=== PATIENT | male | born 1955 | race American Indian/Alaskan Native ===

== ENCOUNTER 2017-02-02 23:42 | Emergency (ER) | payer OTHER ==
[2017-02-03] MEDS ORDERED: TORADOL ONE (05:16)
[2017-02-03] MEDS ORDERED: NORCO 10/325 ONE (05:16)
[2017-02-03] MEDS ORDERED: TORADOL IM ONE (05:23)
[2017-02-03] MEDS ORDERED: NORCO 10/325 PO ONE (05:23)
--- NOTE | 2017-02-03 05:29 | XRay Report ---
FINAL REPORT PROCEDURE: XR KNEE 1-2V RT TECHNIQUE: Right knee radiographs, AP and lateral views. HISTORY: pain and swelling of right knee COMPARISON: No prior studies are available for comparison. FINDINGS: Fracture (s) and/or Dislocation(s): None . Joint space(s): Normal. Soft tissues: Normal. Bone mineralization: Normal. Foreign bodies: None. IMPRESSION: Normal Examination.
--- NOTE | 2017-02-03 06:23 | Emergency Department Report ---
HPI - General Chief Complaint: Extremity Injury, Lower Time Seen by Provider: 02/03/17 05:43 - HPI HPI: 51-year-old male complains of right knee pain and swelling since 1200 hrs. yesterday. Denies history of similar symptoms. Denies injury or trauma. Describes his pain as 10 out of 10 constant, tight, throbbing pain. Denies numbness, weakness, paresthesias. Tried naproxen without relief. Denies fever , chills, nausea, vomiting, chest pain, shortness of breath, abdominal pain. Positive for history of gout. ED Past Medical Hx - Past Medical History Previous Medical History?: Yes Hx Hypertension: Yes Hx Heart Attack/AMI: Yes (2012) Hx Congestive Heart Failure: No Hx Diabetes: No Hx Deep Vein Thrombosis: No Hx Pulmonary Embolism: No Hx Liver Disease: No Hx Renal Disease: No Hx Sickle Cell Disease: No Hx Arthritis: No Hx Seizures: No Hx Kidney Stones: Yes Hx Asthma: Yes Hx COPD: No Hx Tuberculosis: No Hx Dementia: No Hx HIV: No Additional medical history: high cholesterol, - Surgical History Past Surgical History?: Yes Hx Coronary Stent: Yes (X 8) Hx Open Heart Surgery: No Hx Pacemaker: No Hx Internal Defibrillator: No Hx Cholecystectomy: No Hx Appendectomy: No Hx Breast Surgery: No Additional Surgical History: ureter sx - Social History Smoking Status: Never Smoker Substance Use Type: None - Medications Home Medications: Home Medications Medication Instructions Recorded Confirmed Last Taken Type Ezetimibe [Zetia] 10 mg PO QDAY #30 tablet 12/08/13 11/22/14 Unknown Rx Hydrochlorothiazide [HCTZ] 25 mg PO QDAY #30 capsule 12/08/13 11/22/14 Unknown Rx Montelukast [Singulair] 10 mg PO QPM #30 tablet 12/08/13 11/22/14 Unknown Rx Prasugrel [Effient] 10 mg PO DAILY #30 tablet 12/08/13 11/22/14 Unknown Rx Valsartan [Diovan] 160 mg PO QDAY #30 tablet 12/08/13 11/22/14 Unknown Rx Isosorbide Mononitrate [Isosorbide 30 mg PO QAM 11/22/14 11/22/14 Unknown History Mononitrate ER (IMDUR)] Metoprolol [Lopressor] 25 mg PO BID 11/22/14 11/22/14 Unknown History Omeprazole [PriLOSEC] 20 mg PO QDAY 11/22/14 11/22/14 Unknown History Aspirin [Aspirin BABY CHEW TAB] 81 mg PO QDAY #30 tab.chew 11/26/14 Unknown Rx Atorvastatin Calcium [Lipitor] 10 mg PO QHS #30 tablet 11/26/14 Unknown Rx Lisinopril [Zestril TAB] 40 mg PO QDAY #30 tablet 11/26/14 Unknown Rx Metoprolol Xl [Metoprolol 25 mg PO QDAY #30 tablet 11/26/14 Unknown Rx SUCCINATE ER TAB] Acetaminophen/Codeine [Tylenol 1 tab PO Q6H PRN #15 tab 02/03/17 Unknown Rx /Codeine # 3 tab] Indomethacin [Indocin] 25 mg PO TID #40 capsule 02/03/17 Unknown Rx ED Review of Systems ROS: Stated complaint: RT KNEE PAIN Other details as noted in HPI Constitutional: denies: chills, fever, malaise Eyes: denies: eye pain ENT: denies: ear pain, throat pain, congestion Respiratory: denies: cough, shortness of breath, wheezing Cardiovascular: denies: chest pain, palpitations Endocrine: no symptoms reported Gastrointestinal: denies: abdominal pain, nausea, vomiting Musculoskeletal: joint swelling, arthralgia Neurological: denies: headache, weakness, numbness, paresthesias Physical Exam - Physical Exam Vital Signs: Vital Signs 02/03/17 00:40 Temperature 98.4 F Pulse Rate 91 H Respiratory 18 Rate Blood Pressure 147/100 O2 Sat by Pulse 100 Oximetry Physical Exam: GENERAL: The patient is well-developed and well-nourished. Patient is in NAD. HEAD: Normocephalic. Atraumatic. CHEST/LUNGS: Clear to auscultation throughout. HEART/CARDIOVASCULAR: Regular rate and rhythm. No murmurs, rubs or gallops. ABDOMEN: Abdomen is soft, nontender. Bowel sounds normoactive. No guarding or rebound tenderness. RIGHT KNEE: Limited range of motion due to pain. Tenderness to palpation over medial and lateral aspect of the right knee. Warm to touch. Positive for mild erythema and edema. Normal sensation. Peripheral pulses intact. Capillary refill less than 2 seconds. NEURO: Alert and oriented x 3. ED Course Vital Signs 02/03/17 00:40 Temperature 98.4 F Pulse Rate 91 H Respiratory 18 Rate Blood Pressure 147/100 O2 Sat by Pulse 100 Oximetry ED Medical Decision Making - Lab Data Vital Signs 02/03/17 00:40 Temperature 98.4 F Pulse Rate 91 H Respiratory 18 Rate Blood Pressure 147/100 O2 Sat by Pulse 100 Oximetry - Radiology Data Radiology results: report reviewed Right knee x-ray: No fracture or dislocation. Normal joint space, soft tissue, bony mineralization. No foreign bodies. - Medical Decision Making 61-year-old male presents today with right knee pain and swelling times one day. Positive for history of gout. His x-ray results reveal no fracture or dislocation. Patient is in no acute distress at this time. He will be discharged home and is encouraged to follow up with a primary care provider. He will be sent home on indomethacin and is encouraged to return to the emergency room for any worsening symptoms. Critical care attestation.: If time is entered above; I have spent that time in minutes in the direct care of this critically ill patient, excluding procedure time. ED Disposition Clinical Impression: Gout attack Qualifiers: Gout site: knee Gout etiology: unspecified cause Laterality: right Qualified Code(s): M10.9 - Gout, unspecified Knee pain Qualifiers: Laterality: right Chronicity: acute Qualified Code(s): M25.561 - Pain in right knee Disposition: DISCHARGED TO HOME OR SELFCARE Is pt being admited?: No Does the pt Need Aspirin: No Condition: Stable Instructions: Acute Gouty Arthritis (ED) Additional Instructions: Follow-up with primary care provider. Return to the emergency department if symptoms worsen. Prescriptions: Acetaminophen/Codeine [Tylenol /Codeine # 3 tab] 1 tab PO Q6H PRN #15 tab PRN Reason: Pain Indomethacin [Indocin] 25 mg PO TID #40 capsule Referrals: PRIMARY CAREMD [Primary Care Provider] - 3-5 Days RAMÍREZ SNELL MD [Staff Physician] - 3-5 Days Forms: Work/School Release Form(ED) Time of Disposition: 06:27
[2017-02-03 06:49] VITALS: BP 128/82
== END 2017-02-03 06:48 | disposition home or self-care (01) ==
LOC: ED 23:42
DX: M10.9 Gout, unspecified (principal); M25.561 Pain in right knee; I10 Essential (primary) hypertension; I25.2 Old myocardial infarction; J45.909 Unspecified asthma, uncomplicated
CPT/HCPCS: 73560; 82962; 96372; 99283; J1885

== ENCOUNTER 2022-03-05 17:04 | Inpatient (IN) | payer MEDICARE, OTHER ==
--- NOTE | 2022-03-05 17:44 | XRay Report ---
CHEST 2 VIEWS INDICATION / CLINICAL INFORMATION: Chest pain. Midsternal chest pain starting last night. Shortness o f breath when walking. COMPARISON: 11/08/19. FINDINGS: SUPPORT DEVICES: None. HEART / MEDIASTINUM: The heart size and pulmonary vasculature are normal. There is mild calcification in the aortic arch without aneurysm. LUNGS / PLEURA: There is minimal linear subsegmental atelectasis/scarring in the left lower lung, unc hanged. The right lung is clear. No pneumothorax. ADDITIONAL FINDINGS: There is mild chronic elevation of the left hemidiaphragm. IMPRESSION: No acute abnormality or significant change. Signer Name: Zach Turk MD Signed: 03/05/2022 5:40 PM Workstation Name: [id number]
[2022-03-05 18:08] LABS: Basophils % (Auto) 0.3 % (0.0-1.8); Eosinophils # (Auto) 0.1 K/mm3 (0.0-0.4); Hematocrit 46.9 % (35.5-45.6); Hemoglobin 14.8 gm/dl (11.8-15.2); Lymphocytes # (Auto) 1.8 K/mm3 (1.2-5.4); Lymphocytes % (Auto) 26.9 % (13.4-35.0); Mean Corpuscular HGB Conc 32 % (32-34); Mean Corpuscular Volume 87 fl (84-94); Monocytes # (Auto) 0.5 K/mm3 (0.0-0.8); Monocytes % (Auto) 7.2 % (0.0-7.3); Platelet Count 283 K/mm3 (140-440); Red Blood Count 5.37 M/mm3 (3.65-5.03); Red Cell Distribution Width 14.9 % (13.2-15.2)
[2022-03-05 18:17] LABS: Alanine Aminotransferase 13 units/L (7-56); Albumin 4.3 g/dL (3.9-5); BUN/Creatinine Ratio 9; Blood Urea Nitrogen 12 mg/dL (9-20); Calcium 9.7 mg/dL (8.4-10.2); Hemolysis Index 9
[2022-03-05 18:27] LABS: INR 0.91 (0.87-1.13)
[2022-03-05 18:28] LABS: Partial Thromboplastin Time 31.1 Sec. (24.2-36.6)
[2022-03-06] MEDS ORDERED: NITROGLYCERIN 2% OINT 1 GM TP ONE (00:09)
[2022-03-06] MEDS ORDERED: SODIUM CHLORIDE 0.9% 500 ML 500 ML IV ONE (00:09)
[2022-03-06 01:28] LABS: INR 0.96 (0.87-1.13)
[2022-03-06] MEDS: MORPHINE 4 MG/1 ML INJ IV PRN ×5 (02:10→23:55)
[2022-03-06] MEDS ORDERED: ONDANSETRON 4 MG/2 ML INJ IV ONE (02:16)
[2022-03-06] MEDS ORDERED: MORPHINE 4 MG/1 ML INJ IV ONE (02:16)
--- NOTE | 2022-03-06 03:35 | Ultrasound Report ---
"ULTRASOUND ABDOMEN, LIMITED (RIGHT UPPER QUADRANT) INDICATION: Unspecified abdominal pain. COMPARISON: None available. FINDINGS: Pancreas: Visualized portion shows no significant abnormality. Liver: Normal in size with generalized increased echotexture. No mass is identified. Normal portal ve nous flow. Gallbladder: Contracted without visualization of stones or evidence of acute cholecystitis. Sonograp hic Clark's sign: Not performed. Bile ducts: No significant abnormality. Common Bile Duct measures 2.9 mm. Free fluid: None. Additional Findings: None. IMPRESSION: 1. Increased hepatic echotexture, most commonly representing steatosis. 2. No other significant abnormality to explain the patient's abdominal pain. Signer Name: Santana Dotson MD Signed: 03/06/2022 3:30 AM Workstation Name: [id number]"
--- NOTE | 2022-03-06 05:11 | Cat Scan Report ---
CT ABDOMEN AND PELVIS WITH CONTRAST INDICATION / CLINICAL INFORMATION: Unspecified abdominal pain. TECHNIQUE: Axial CT images were obtained through the abdomen and pelvis after 100 cc Omnipaque [address] scans at this location are performed using CT dose reduction for ALARA by means of automated exposure control. COMPARISON: None available. FINDINGS: LOWER CHEST: No acute findings. There is extensive coronary atherosclerosis and/or previously placed coronary stents. LIVER: No significant abnormality. GALLBLADDER: No significant abnormality. BILE DUCTS: No significant abnormality. PANCREAS: No significant abnormality. SPLEEN: No significant abnormality. ADRENALS: No significant abnormality. RIGHT KIDNEY/URETER: Mild/moderate right renal atrophy is seen with multifocal cortical scarring and multiple simple cysts measuring up to 1 cm along the lower pole. There is nonspecific mild right hydr oureteronephrosis without visualization of an obstructing mass or stone. A nonobstructive mid pole re nal stone measures up to 4 mm. No other significant abnormality. LEFT KIDNEY/URETER: Mild atrophy is seen with multifocal cortical scarring and numerous simple appear ing renal cysts including a dominant mid pole cyst measuring up to 7.5 cm. Multiple nonobstructive le ft renal stones measure up to 4 mm along the mid pole. No hydroureteronephrosis or other significant abnormalities. STOMACH/SMALL BOWEL: There is an uncomplicated moderate right periumbilical hernia containing fat and unremarkable appearing small bowel loops. No other significant abnormality. COLON: No significant abnormality. APPENDIX: No significant abnormality. PERITONEUM: No free fluid. No free air. No fluid collection. LYMPH NODES: No significant adenopathy. VASCULATURE: Normal caliber of the aorta with moderate generalized atherosclerosis. No other signific ant abnormality. URINARY BLADDER: No significant abnormality. REPRODUCTIVE ORGANS: No significant abnormality. ADDITIONAL FINDINGS: None. BONES: No acute findings. There is mild thoracolumbar spondylosis. IMPRESSION: 1. Nonspecific mild right hydroureteronephrosis without visualization of an obstructive mass or stone . 2. No other acute findings to explain the patient's abdominal pain. 3. Additional findings as above. Signer Name: Santana Dotsno MD Signed: 03/06/2022 5:06 AM Workstation Name: [id number]
--- NOTE | 2022-03-06 05:39 | Emergency Department Report ---
ED Chest Pain HPI - General Chief Complaint: Chest Pain Stated Complaint: CHEST PAIN Time Seen by Provider: 03/06/22 00:03 Source: patient Mode of arrival: Ambulatory Limitations: No Limitations - History of Present Illness Initial Comments: 66 years old with CAD , 8 stents in past DVT,, COPD , DM , hyperlipidemia ,here for midsternal epigastic chest pain started yesterday crushing similar to pain with NV in the past . no nausea no diaphoresis -: Sudden, hour(s) Onset: during rest Pain Location: substernal, epigastric Pain Radiation: none Severity scale (0 -10): 7 Quality: squeezing Consistency: constant Improves With: nothing Worsens With: nothing Treatments Prior to Arrival: aspirin Aspirin use within the Past 7 Days: (1) Yes - Related Data Home Medications Medication Instructions Recorded Confirmed Last Taken Isosorbide Mononitrate [Isosorbide 30 mg PO QAM 11/22/14 11/08/19 Unknown Mononitrate ER (IMDUR)] Previous Rx's Medication Instructions Recorded Last Taken Type ALBUTEROL NEB's [Proventil 0.083% 2.5 mg IH TID PRN 30 Days neb 11/10/19 Unknown Rx NEBS] Aspirin EC [Halfprin EC] 81 mg PO QDAY tablet 11/10/19 Unknown Rx Aspirin [Aspirin BABY CHEW TAB] 81 mg PO QDAY #30 tab.chew 11/10/19 Unknown Rx AtorvaSTATin [Lipitor] 40 mg PO QHS #30 tablet 11/10/19 Unknown Rx Bisoprolol Fumarate 5 mg PO DAILY #30 tab 11/10/19 Unknown Rx Clopidogrel Bisulfate 75 mg PO DAILY #30 tab 11/10/19 Unknown Rx Doxycycline Hyclate [Doxycycline 100 mg PO Q12HR #20 tab 11/10/19 Unknown Rx Hyclate TAB] Insulin Aspart Prot/Aspart(Nf) 28 units SQ QPM 30 Days units 11/10/19 Unknown Rx [NovoLOG Mix 70/30 VIAL] Montelukast [Singulair] 10 mg PO QPM #30 tablet 11/10/19 Unknown Rx Nitroglycerin [Nitrostat] 0.4 mg SL Q5M PRN tablet 11/10/19 Unknown Rx NovoLOG Mix 70/30 VIAL 30 unit SUB-Q QAM 30 Days 11/10/19 Unknown Rx ProAir HFA Inhaler 2 puff IH Q6HR PRN 30 Days 11/10/19 Unknown Rx Spiriva Respimat 2 puff IH Q12HR PRN 30 Days 11/10/19 Unknown Rx Symbicort 160-4.5 Mcg Inhaler 2 puff IH BID 30 Days 11/10/19 Unknown Rx amLODIPine 10 mg PO DAILY #30 tab 11/10/19 Unknown Rx methylPREDNISolone [Medrol 4MG 4 mg PO DAILY #1 tab.ds.pk 11/10/19 Unknown Rx DOSEPAK (21 tabs)] Allergies Allergy/AdvReac Type Severity Reaction Status Date / Time zain Allergy Unknown Verified 03/05/22 17:08 lisinopril Allergy Unknown Verified 03/05/22 17:08 Penicillins Allergy Angioedema Verified 03/05/22 17:08 Heart Score - HEART Score History: Moderately suspicious EKG: Normal Age: > 65 Risk factors: > 3 risk factors or hx of atherosclerotic disease Troponin: < normal limit HEART Score: 5 - EKG Read Time Time EKG Completed: 17:11 EKG Read Time: 17:11 - Critical Actions Critical Actions: 4-6 pts:12-16.6% risk of adverse cardiac event. Should be admitted ED Review of Systems ROS: Stated complaint: CHEST PAIN Other details as noted in HPI Constitutional: denies: chills, fever Eyes: denies: eye pain, eye discharge, vision change ENT: denies: ear pain, throat pain Respiratory: denies: cough, shortness of breath, wheezing Cardiovascular: denies: chest pain, palpitations Endocrine: no symptoms reported Gastrointestinal: denies: abdominal pain, nausea, diarrhea Genitourinary: denies: urgency, dysuria Musculoskeletal: denies: back pain, joint swelling, arthralgia Skin: denies: rash, lesions Neurological: denies: headache, weakness, paresthesias Psychiatric: denies: anxiety, depression Hematological/Lymphatic: denies: easy bleeding, easy bruising ED Past Medical Hx - Past Medical History Hx Hypertension: Yes Hx Heart Attack/AMI: Yes Hx Congestive Heart Failure: No Hx Diabetes: Yes Hx Deep Vein Thrombosis: No Hx Pulmonary Embolism: No Hx Liver Disease: No Hx Renal Disease: No Hx Sickle Cell Disease: No Hx Arthritis: No Hx Seizures: No Hx Kidney Stones: Yes (stents ureters) Hx Asthma: Yes Hx COPD: Yes Hx Tuberculosis: No Hx Dementia: No Hx HIV: No Additional medical history: high cholesterol, - Surgical History Hx Coronary Stent: Yes Hx Open Heart Surgery: No Hx Pacemaker: No Hx Internal Defibrillator: No Hx Cholecystectomy: No Hx Appendectomy: No Hx Breast Surgery: No Additional Surgical History: ureter sx - Social History Smoking Status: Former Smoker Substance Use Type: None - Medications Home Medications: Home Medications Medication Instructions Recorded Confirmed Last Taken Type Isosorbide Mononitrate [Isosorbide 30 mg PO QAM 11/22/14 11/08/19 Unknown History Mononitrate ER (IMDUR)] ALBUTEROL NEB's [Proventil 0.083% 2.5 mg IH TID PRN 30 Days neb 11/10/19 Unknown Rx NEBS] Aspirin EC [Halfprin EC] 81 mg PO QDAY tablet 11/10/19 Unknown Rx Aspirin [Aspirin BABY CHEW TAB] 81 mg PO QDAY #30 tab.chew 11/10/19 Unknown Rx AtorvaSTATin [Lipitor] 40 mg PO QHS #30 tablet 11/10/19 Unknown Rx Bisoprolol Fumarate 5 mg PO DAILY #30 tab 11/10/19 Unknown Rx Clopidogrel Bisulfate 75 mg PO DAILY #30 tab 11/10/19 Unknown Rx Doxycycline Hyclate [Doxycycline 100 mg PO Q12HR #20 tab 11/10/19 Unknown Rx Hyclate TAB] Insulin Aspart Prot/Aspart(Nf) 28 units SQ QPM 30 Days units 11/10/19 Unknown Rx [NovoLOG Mix 70/30 VIAL] Montelukast [Singulair] 10 mg PO QPM #30 tablet 11/10/19 Unknown Rx Nitroglycerin [Nitrostat] 0.4 mg SL Q5M PRN tablet 11/10/19 Unknown Rx NovoLOG Mix 70/30 VIAL 30 unit SUB-Q QAM 30 Days 11/10/19 Unknown Rx ProAir HFA Inhaler 2 puff IH Q6HR PRN 30 Days 11/10/19 Unknown Rx Spiriva Respimat 2 puff IH Q12HR PRN 30 Days 11/10/19 Unknown Rx Symbicort 160-4.5 Mcg Inhaler 2 puff IH BID 30 Days 11/10/19 Unknown Rx amLODIPine 10 mg PO DAILY #30 tab 11/10/19 Unknown Rx methylPREDNISolone [Medrol 4MG 4 mg PO DAILY #1 tab.ds.pk 01/25/20 Unknown Rx DOSEPAK (21 tabs)] ED Physical Exam - General Limitations: No Limitations General appearance: alert, in no apparent distress - Head Head exam: Present: atraumatic, normocephalic - Eye Eye exam: Present: normal appearance - ENT ENT exam: Present: mucous membranes moist - Neck Neck exam: Present: normal inspection - Respiratory Respiratory exam: Present: normal lung sounds bilaterally. Absent: respiratory distress - Cardiovascular Cardiovascular Exam: Present: regular rate, normal rhythm. Absent: systolic murmur, diastolic murmur, rubs, gallop - GI/Abdominal GI/Abdominal exam: Present: soft, tenderness - Rectal Rectal exam: Present: deferred - Extremities Exam Extremities exam: Present: normal inspection - Back Exam Back exam: Present: normal inspection - Neurological Exam Neurological exam: Present: alert, oriented X3 - Psychiatric Psychiatric exam: Present: normal affect, normal mood - Skin Skin exam: Present: warm, dry, intact, normal color. Absent: rash ED Course Vital Signs 03/05/22 03/05/22 03/06/22 17:06 23:31 00:34 Temperature 98.0 F Pulse Rate 81 57 L 60 Respiratory 16 18 Rate Blood Pressure 147/74 Blood Pressure 143/86 146/76 [Right] O2 Sat by Pulse 94 Oximetry OSMIN score - Osmin Score Age > 65: (0) No Aspirin use within the Past 7 Days: (1) Yes 3 or more CAD Risk Factors: (1) Yes 2 or more Angina events in past 24 hrs: (1) Yes Known CAD with more than 50% Stenosis: (1) Yes Elevated Cardiac Markers: (0) No ST Deviation Greater than 0.5mm: (0) No OSMIN Score: 4 ED Medical Decision Making - Lab Data Result diagrams: 03/05/22 17:23 03/05/22 17:23 - EKG Data -: EKG Interpreted by Ak EKG shows normal: sinus rhythm Rate: normal - EKG Data Interpretation: no acute changes - Radiology Data Radiology results: report reviewed, image reviewed - Medical Decision Making work up negative repeat trop is neg , CT and US negative , spoke with dr shaikh over [place] and he approved admission here Critical care attestation.: If time is entered above; I have spent that time in minutes in the direct care of this critically ill patient, excluding procedure time. ED Disposition Clinical Impression: Chest pain Disposition: ADMITTED INPATIENT Is pt being admited?: Yes Does the pt Need Aspirin: Yes Condition: Stable Instructions: Nonspecific Chest Pain, Adult Referrals: KEILA DICKENS MD [Primary Care Provider] - 3-5 Days
[2022-03-06] MEDS ORDERED: NITROGLYCERIN 0.4 MG TAB SUBL SL PRN ×2 (06:06→06:09)
[2022-03-06] MEDS ORDERED: traMADol 50 MG TAB PO PRN (06:06)
[2022-03-06] MEDS ORDERED: ACETAMINOPHEN 325 MG TAB PO PRN (06:06)
[2022-03-06] MEDS ORDERED: DEXTROSE 50% IN WATER (25GM) 50 ML SYRINGE IV PRN (06:06)
[2022-03-06] MEDS ORDERED: SPIRIVA RESPIMAT IH PRN (06:09)
[2022-03-06] MEDS ORDERED: ALBUTEROL 2.5 MG/3 ML NEBU IH PRN ×2 (06:09→06:39)
[2022-03-06] MEDS ORDERED: PROAIR IH PRN (06:09)
[2022-03-06] MEDS ORDERED: SODIUM CHLORIDE 0.9% 1000 ML 1,000 ML IV SCH (06:15)
--- NOTE | 2022-03-06 06:16 | History and Physical Report ---
History of Present Illness Date of examination: 03/06/22 Date of admission: 03/06/22 Chief complaint: Chest pain History of present illness: 66 years old male with past medical history of CAD, 8 stents, DVT, COPD , DM , hyperlipidemia was brought to the emergency room because of midsternal epigastic chest pain since yesterday . Chest pain is crushing in nature similar to pain with VT in the past . no nausea no diaphoresis In the emergency room initial cardiac enzyme is negative troponin is 0.010. Still going to admit the patient to the telemetry we do the serial cardiac enzymes we also consult cardiology Past History Past Medical History: acute VT, CAD, COPD (Asthma), diabetes, hypertension, hyperlipidemia, other (Kidney stone, stents ureter) Past Surgical History: Other (ureter sx) Social history: other (Former smoker) Family history: hypertension Medications and Allergies Allergies Allergy/AdvReac Type Severity Reaction Status Date / Time zain Allergy Unknown Verified 03/05/22 17:08 lisinopril Allergy Unknown Verified 03/05/22 17:08 Penicillins Allergy Angioedema Verified 03/05/22 17:08 Home Medications Medication Instructions Recorded Confirmed Last Taken Type Isosorbide Mononitrate [Isosorbide 30 mg PO QAM 11/22/14 11/08/19 Unknown History Mononitrate ER (IMDUR)] ALBUTEROL NEB's [Proventil 0.083% 2.5 mg IH TID PRN 30 Days neb 11/10/19 Unknown Rx NEBS] Aspirin EC [Halfprin EC] 81 mg PO QDAY tablet 11/10/19 Unknown Rx Aspirin [Aspirin BABY CHEW TAB] 81 mg PO QDAY #30 tab.chew 11/10/19 Unknown Rx AtorvaSTATin [Lipitor] 40 mg PO QHS #30 tablet 11/10/19 Unknown Rx Bisoprolol Fumarate 5 mg PO DAILY #30 tab 11/10/19 Unknown Rx Clopidogrel Bisulfate 75 mg PO DAILY #30 tab 11/10/19 Unknown Rx Doxycycline Hyclate [Doxycycline 100 mg PO Q12HR #20 tab 11/10/19 Unknown Rx Hyclate TAB] Insulin Aspart Prot/Aspart(Nf) 28 units SQ QPM 30 Days units 11/10/19 Unknown Rx [NovoLOG Mix 70/30 VIAL] Montelukast [Singulair] 10 mg PO QPM #30 tablet 11/10/19 Unknown Rx Nitroglycerin [Nitrostat] 0.4 mg SL Q5M PRN tablet 11/10/19 Unknown Rx NovoLOG Mix 70/30 VIAL 30 unit SUB-Q QAM 30 Days 11/10/19 Unknown Rx ProAir HFA Inhaler 2 puff IH Q6HR PRN 30 Days 11/10/19 Unknown Rx Spiriva Respimat 2 puff IH Q12HR PRN 30 Days 11/10/19 Unknown Rx Symbicort 160-4.5 Mcg Inhaler 2 puff IH BID 30 Days 11/10/19 Unknown Rx amLODIPine 10 mg PO DAILY #30 tab 11/10/19 Unknown Rx methylPREDNISolone [Medrol 4MG 4 mg PO DAILY #1 tab.ds.pk 11/10/19 Unknown Rx DOSEPAK (21 tabs)] Review of Systems All systems: negative Cardiovascular: chest pain, shortness of breath Respiratory: shortness of breath Exam - Constitutional Vitals: Temp Pulse Resp BP Pulse Ox 98.0 F 60 18 147/74 94 03/05/22 17:06 03/06/22 00:34 03/05/22 23:31 03/06/22 00:34 03/05/22 17:06 General appearance: Present: no acute distress, well-nourished - EENT Eyes: Present: PERRL ENT: hearing intact, clear oral mucosa - Neck Neck: Present: supple, normal ROM - Respiratory Respiratory effort: normal Respiratory: bilateral: diminished - Cardiovascular Heart Sounds: Present: S1 & S2. Absent: rub, click - Extremities Extremities: pulses symmetrical, No edema Peripheral Pulses: within normal limits - Abdominal General gastrointestinal: Present: soft, non-tender, non-distended, normal bowel sounds Male genitourinary: Present: normal - Integumentary Integumentary: Present: clear, warm, dry - Musculoskeletal Musculoskeletal: gait normal, strength equal bilaterally - Psychiatric Psychiatric: appropriate mood/affect, intact judgment & insight - Neurologic Neurologic: CNII-XII intact, moves all extremities HEART Score - HEART Score EKG: Normal Age: > 65 Risk factors: > 3 risk factors or hx of atherosclerotic disease Troponin: Troponin T < 0.010 ng/mL (0.00-0.029) 03/06/22 00:24 Troponin: < normal limit - Critical Actions Critical Actions: 4-6 pts:12-16.6% risk of adverse cardiac event. Should be admitted Results - Labs CBC & Chem 7: 03/05/22 17:23 03/05/22 17: Labs: Laboratory Last Values WBC 6.6 K/mm3 (4.5-11.0) 03/05/22 17: RBC 5.37 M/mm3 (3.65-5.03) H 03/05/22 17: Hgb 14.8 gm/dl (11.8-15.2) 03/05/22: Hct 46.9 % (35.5-45.6) H 03/05/22 17: MCV 87 fl (84-94) 03/05/22: MCH 28 pg (28-32) 03/05/22: MCHC 32 % (32-34) 03/05/22: RDW 14.9 % (13.2-15.2) 03/05/22: Plt Count 283 K/mm3 (140-440) 03/05/22: Lymph % (Auto) 26.9 % (13.4-35.0) 03/05/22: Bureau % (Auto) 7.2 % (0.0-7.3) 03/05/22: Eos % (Auto) 1.0 % (0.0-4.3) 03/05/22: Baso % (Auto) 0.3 % (0.0-1.8) 03/05/22: Lymph # (Auto) 1.8 K/mm3 (1.2-5.4) 03/05/22: Bureau # (Auto) 0.5 K/mm3 (0.0-0.8) 03/05/22: Eos # (Auto) 0.1 K/mm3 (0.0-0.4) 03/05/22: Baso # (Auto) 0.0 K/mm3 (0.0-0.1) 03/05/22: Seg Neutrophils % 64.6 % (40.0-70.0) 03/05/22: Seg Neutrophils # 4.2 K/mm3 (1.8-7.7) 03/05/22:23 PT 13.8 Sec. (12.2-14.9) 03/06/22 00:24 INR 0.96 (0.87-1.13) 03/06/22 00:24 APTT 31.1 Sec. (24.2-36.6) 03/05/22 17:23 Sodium 139 mmol/L (137-145) 03/05/22 17:23 Potassium 4.0 mmol/L (3.6-5.0) 03/05/22 17:23 Chloride 102.7 mmol/L (98-107) 03/05/22 17:23 Carbon Dioxide 24 mmol/L (22-30) 03/05/22 17:23 Anion Gap 16 mmol/L 03/05/22 17:23 BUN 12 mg/dL (9-20) 03/05/22 17:23 Creatinine 1.3 mg/dL (0.8-1.3) 03/05/22 17:23 Estimated GFR > 60 ml/min 03/05/22 17:23 BUN/Creatinine Ratio 9 % 03/05/22 17:23 Glucose 152 mg/dL (75-100) H 03/05/22 17:23 Calcium 9.7 mg/dL (8.4-10.2) 03/05/22 17:23 Total Bilirubin 1.00 mg/dL (0.1-1.2) 03/05/22 17:23 AST 12 units/L (5-40) 03/05/22 17:23 ALT 13 units/L (7-56) 03/05/22 17:23 Alkaline Phosphatase 119 units/L (35-129) 03/05/22 17:23 Troponin T < 0.010 ng/mL (0.00-0.029) 03/06/22 00:24 Total Protein 7.9 g/dL (6.3-8.2) 03/05/22 17:23 Albumin 4.3 g/dL (3.9-5) 03/05/22 17:23 Albumin/Globulin Ratio 1.2 % 03/05/22 17:23 Lipase 21 units/L (13-60) 03/06/22 00:24 - Imaging and Cardiology Chest x-ray: report reviewed CT scan - abdomen: report reviewed Assessment and Plan VTE prophylaxis?: Chemical Plan of care discussed with patient/family: Yes - Patient Problems (1) ACS (acute coronary syndrome) Current Visit: Yes Status: Acute Plan to address problem: Admit the patient to the medical telemetry. Aspirin 81 mg p.o. daily. Plavix 75 mg p.o. daily. Nitroglycerin as needed. Lipitor 40 mg p.o. daily. Serial cardiac enzymes. Echocardiogram. Cardiology consult (2) Asthma Current Visit: Yes Status: Acute Plan to address problem: Oxygen via nasal cannula 3 L/min. DuoNeb by nebulizer every 4 hours. Albuterol via nebulizer every 4 hours as needed. We continue the home medication (3) Dyspnea Current Visit: No Status: Acute Qualifiers: Dyspnea type: shortness of breath Qualified Code(s): R06.02 - Shortness of breath; R06.00 - Dyspnea, unspecified; R06.01 - Orthopnea Plan to address problem: Oxygen via nasal cannula 3 L/min. DuoNeb by nebulizer every 4 hours. Albuterol via nebulizer every 4 hours as needed. We continue the home medication (4) Hx of heart artery stent Current Visit: No Status: Acute Plan to address problem: Aspirin 81 mg p.o. daily. Plavix 75 mg p.o. daily. Nitroglycerin as needed. Lipitor 40 mg p.o. daily. Serial cardiac enzymes. Echocardiogram. Cardiology consult (5) Hyperlipidemia Current Visit: No Status: Acute Plan to address problem: Lipitor 40 mg p.o. daily. We will recheck the lipid panel (6) Hypertension Current Visit: No Status: Acute Plan to address problem: Amlodipine 10 mg p.o. daily. Bisoprolol 5 mg p.o. daily. We continue the home medication (7) DVT prophylaxis Current Visit: Yes Status: Acute Plan to address problem: Heparin 5000 units subcu every 12 hours for DVT prophylaxis. Pepcid 20 mg p.o. twice daily for GI prophylaxis. Patient is a full code
[2022-03-06] MEDS ORDERED: IPRATROPIUM 0.02% NEBU 2.5 ML IH PRN (06:47)
[2022-03-06 09:33] LABS: Basophils % (Auto) 0.3 % (0.0-1.8); Eosinophils # (Auto) 0.1 K/mm3 (0.0-0.4); Eosinophils % (Auto) 1.4 % (0.0-4.3); Hematocrit 47.1 % (35.5-45.6); Hemoglobin 14.7 gm/dl (11.8-15.2); Lymphocytes # (Auto) 1.8 K/mm3 (1.2-5.4); Lymphocytes % (Auto) 28.7 % (13.4-35.0); Mean Corpuscular HGB Conc 31 % (32-34); Mean Corpuscular Volume 88 fl (84-94); Monocytes # (Auto) 0.5 K/mm3 (0.0-0.8); Monocytes % (Auto) 8.6 % (0.0-7.3); Platelet Count 253 K/mm3 (140-440); Red Blood Count 5.36 M/mm3 (3.65-5.03); Red Cell Distribution Width 15.4 % (13.2-15.2)
[2022-03-06 09:59] LABS: BUN/Creatinine Ratio 8; Blood Urea Nitrogen 10 mg/dL (9-20); Calcium 9.1 mg/dL (8.4-10.2); Hemolysis Index 11
[2022-03-06] MEDS ORDERED: NON-FORMULARY EACH (Methylprednisolone [Medrol 4mg Dosepak (21 Tabs)] 4 MG Tab.Ds.Pk) PO SCH (10:00)
[2022-03-06] MEDS ORDERED: CLOPIDOGREL BISULFATE 75 MG PO SCH (10:00)
[2022-03-06] MEDS ORDERED: BISOPROLOL FUMARATE 5 MG PO SCH (10:00)
[2022-03-06] MEDS ORDERED: NON-FORMULARY EACH (Amlodipine 10 MG) PO SCH (10:00)
[2022-03-06] MEDS ORDERED: methylPREDNISolone 4 MG TAB PO SCH (10:00)
[2022-03-06] MEDS ORDERED: DOXYCYCLINE 100 MG CAP PO SCH (10:00)
[2022-03-06] MEDS ORDERED: DOXYCYCLINE HYCLATE 100 MG PO SCH (10:00)
--- NOTE | 2022-03-06 10:00 | Progress Note ---
Subjective Date of service: 03/06/22 Interval history: CONSULT DICTATED POSSIBLE UNSTABLE ANGINA RECOMMEND CATH TUESDAY IN ADDITION TO IV Tx Objective Vital Signs Temp Pulse Resp BP BP Pulse Ox 03/06/22 08:05 93 H 16 135/85 96 03/06/22 03:00 98 F 76 18 132/76 100 03/06/22 00:34 60 147/74 03/05/22 23:31 57 L 18 146/76 03/05/22 17:06 98.0 F 81 16 143/86 94 - Labs and Meds Cardiac Enzymes 03/05/22 Range/Units 17:23 AST 12 (5-40) units/L Coagulation 03/05/22 03/06/22 Range/Units 17:23 00:24 PT 13.2 13.8 (12.2-14.9) Sec. INR 0.91 0.96 (0.87-1.13) APTT 31.1 (24.2-36.6) Sec. CBC 03/05/22 03/06/22 Range/Units 17:23 08:48 WBC 6.6 6.2 (4.5-11.0) K/mm3 RBC 5.37 H 5.36 H (3.65-5.03) M/mm3 Hgb 14.8 14.7 (11.8-15.2) gm/dl Hct 46.9 H 47.1 H (35.5-45.6) % Plt Count 283 253 (140-440) K/mm3 Lymph # (Auto) 1.8 1.8 (1.2-5.4) K/mm3 [place] # (Auto) 0.5 0.5 (0.0-0.8) K/mm3 Eos # (Auto) 0.1 0.1 (0.0-0.4) K/mm3 Baso # (Auto) 0.0 0.0 (0.0-0.1) K/mm3 Comprehensive Metabolic Panel 03/05/22 Range/Units 17:23 Sodium 139 (137-145) mmol/L Potassium 4.0 (3.6-5.0) mmol/L Chloride 102.7 (98-107) mmol/L Carbon Dioxide 24 (22-30) mmol/L BUN 12 (9-20) mg/dL Creatinine 1.3 (0.8-1.3) mg/dL Glucose 152 H (75-100) mg/dL Calcium 9.7 (8.4-10.2) mg/dL AST 12 (5-40) units/L ALT 13 (7-56) units/L Alkaline Phosphatase 119 (35-129) units/L Total Protein 7.9 (6.3-8.2) g/dL Albumin 4.3 (3.9-5) g/dL
[2022-03-06] MEDS ORDERED: SODIUM CHLORIDE 0.9% 500 ML 500 ML IV SCH (11:00)
[2022-03-06] MEDS: amLODIPine 10 MG TAB PO SCH (11:27)
[2022-03-06] MEDS: atenoloL 50 MG TAB PO SCH (11:27)
[2022-03-06] MEDS: ASPIRIN 81 MG TAB CHEW PO SCH (11:27)
[2022-03-06] MEDS: CLOPIDOGREL 75 MG TAB PO SCH (11:27)
[2022-03-06] MEDS: HEPARIN 5,000 UNIT/1 ML VIAL SUB-Q SCH ×2 (11:28→22:13)
[2022-03-06] MEDS: FAMOTIDINE 20 MG TAB PO SCH (11:28)
[2022-03-06] MEDS: NITROGLYCERIN 2% OINT 1 GM TP SCH ×3 (11:28→17:36)
--- NOTE | 2022-03-06 11:55 | Event Note ---
Date: 03/06/22 Patient was evaluated this morning, and he was found to be hemodynamically stable. #Acute coronary syndrome #Likely unstable angina #History of CAD complicated by stent x8 Continue home meds: Aspirin 81 mg daily, atorvastatin 40 mg daily, Plavix 75 mg daily Pending TTE to evaluate EF. Continue nitroglycerin as needed for chest pain. Cardiology consulted; appreciate recs. Pending possible left heart catheterization on Tuesday. Patient will be n.p.o. Tuesday night. #Insulin dependent type II diabetes mellitus - hemoglobin A1c: Unknown - home regimen: NPH 70/30 30 units every morning, 28 units every afternoon - current regimen: Moderate SSI, NPH 70/30 25 units twice daily - blood glucose goal 140-180 while inpatient - continue to monitor #Hyperlipidemia #Hypertension - home medications: Amlodipine 10 mg daily, bisoprolol 5 mg daily, atorvastatin 40 mg daily - current medications: Imdur 30 mg daily, bisoprolol 5 mg daily, losartan 25 mg daily, - SBP goal <160 and DBP goal <90 while inpatient - continue to monitor #Asthma Continue albuterol nebs every 4 hours as needed #Coordination of CARE time: 30 minutes. Total visit time equals 30 or more minutes with greater than 50% spent [id number] on coordination of care and counseling. #Advanced care planning -Disease education conducted, care plan discussed, diagnoses discussed, prognosis discussed, and patient acknowledges understanding with care plan -Time: +30 min
[2022-03-06] MEDS ORDERED: INSULIN LISPRO 100 UNIT/ML SUB-Q SCH (12:00)
[2022-03-06] MEDS: LOSARTAN 25 MG TAB PO SCH (14:13)
[2022-03-06 16:13] LABS: Chol/HDL Ratio 3.92 %
[2022-03-06] MEDS: INSULIN LISPRO 100 UNIT/ML SUB-Q SCH (17:34)
[2022-03-06] MEDS: INSULIN NPH/REGULAR 70/30 INJ SUB-Q SCH (17:35)
[2022-03-06] MEDS: MONTELUKAST 10 MG TAB PO SCH (17:36)
[2022-03-06] MEDS: ARFORMOTEROL 15 MCG/2 ML NEBU IH SCH (21:53)
[2022-03-06] MEDS: BUDESONIDE 0.5 MG/2 ML NEBU IH SCH (21:54)
[2022-03-07] MEDS: MORPHINE 4 MG/1 ML INJ IV PRN ×2 (03:00→11:16)
[2022-03-07] MEDS: INSULIN LISPRO 100 UNIT/ML SUB-Q SCH ×5 (06:47→23:06)
[2022-03-07] MEDS ORDERED: BUDESONIDE 0.5 MG/2 ML NEBU IH SCH (08:00)
[2022-03-07] MEDS ORDERED: ARFORMOTEROL 15 MCG/2 ML NEBU IH SCH (08:00)
[2022-03-07] MEDS: BUDESONIDE 0.5 MG/2 ML NEBU IH SCH ×2 (08:40→20:28)
[2022-03-07] MEDS: ARFORMOTEROL 15 MCG/2 ML NEBU IH SCH ×2 (08:40→20:28)
[2022-03-07] MEDS: TIOTROPIUM 18 MCG CAP INHALATION IH SCH (08:40)
[2022-03-07] MEDS: INSULIN NPH/REGULAR 70/30 INJ SUB-Q SCH ×2 (08:53→18:08)
[2022-03-07] MEDS: CLOPIDOGREL 75 MG TAB PO SCH (09:55)
[2022-03-07] MEDS: ASPIRIN 81 MG TAB CHEW PO SCH (09:55)
[2022-03-07] MEDS: HEPARIN 5,000 UNIT/1 ML VIAL SUB-Q SCH ×2 (09:55→23:07)
[2022-03-07] MEDS: FAMOTIDINE 20 MG TAB PO SCH (09:55)
[2022-03-07] MEDS: atenoloL 50 MG TAB PO SCH (09:56)
[2022-03-07] MEDS: LOSARTAN 25 MG TAB PO SCH (09:56)
[2022-03-07] MEDS: amLODIPine 10 MG TAB PO SCH (09:57)
[2022-03-07] MEDS ORDERED: ASPIRIN EC 325 MG TAB PO SCH (10:00)
[2022-03-07] MEDS: NITROGLYCERIN 2% OINT 1 GM TP SCH ×4 (10:05→18:07)
--- NOTE | 2022-03-07 11:31 | Progress Note ---
Assessment and Plan Assessment and plan: #Acute coronary syndrome #Likely unstable angina #History of CAD complicated by stent x8 Continue home meds: Aspirin 81 mg daily, atorvastatin 40 mg daily, Plavix 75 m g daily TTE (03/06/2022) revealing EF 50-60% with normal-sized LV, normal LV systolic function, mild concentric LVH Continue nitroglycerin as needed for chest pain. Cardiology consulted; appreciate recs. Pending possible left heart catheterization on Tuesday. Patient will be n.p.o. Tuesday night. #Insulin dependent type II diabetes mellitus - hemoglobin A1c: Unknown - home regimen: NPH 70/30 30 units every morning, 28 units every afternoon - current regimen: Moderate SSI, NPH 70/30 25 units twice daily - blood glucose goal 140-180 while inpatient - continue to monitor #Hyperlipidemia #Hypertension - home medications: Amlodipine 10 mg daily, bisoprolol 5 mg daily, atorvastatin 40 mg daily - current medications: Imdur 30 mg daily, bisoprolol 5 mg daily, losartan 25 mg daily, - SBP goal <160 and DBP goal <90 while inpatient - continue to monitor #Asthma Continue albuterol nebs every 4 hours as needed #Advanced care planning -Disease education conducted, care plan discussed, diagnoses discussed, prognosis discussed, and patient acknowledges understanding with care plan -Time: +30 min Disposition Plan: Continue medical management Total Time Spent with Patient (Minutes): 45 minutes History Interval history: No acute events overnight. Hospitalist Physical - Constitutional Vitals: Temp Pulse Resp BP Pulse Ox 97.6 F 63 18 123/64 91 03/07/22 04:25 03/07/22 08:40 03/07/22 08:40 03/07/22 08:38 03/07/22 08:38 General appearance: Present: no acute distress, well-nourished - EENT Eyes: Present: PERRL, EOM intact ENT: hearing intact, clear oral mucosa, edentulous - Neck Neck: Present: supple, normal ROM - Respiratory Respiratory effort: normal Respiratory: bilateral: CTA - Cardiovascular Rhythm: regular Heart Sounds: Present: S1 & S2 - Extremities Extremities: no ischemia, pulses intact, pulses symmetrical, No edema, normal temperature, normal color Peripheral Pulses: within normal limits - Abdominal General gastrointestinal: soft, non-tender, non-distended, normal bowel sounds - Integumentary Integumentary: Present: clear, warm, dry - Psychiatric Psychiatric: appropriate mood/affect, intact judgment & insight, memory intact, cooperative - Neurologic Neurologic: CNII-XII intact, moves all extremities - Allied Health Allied health notes reviewed: nursing HEART Score - HEART Score EKG: Normal Age: > 65 Risk factors: > 3 risk factors or hx of atherosclerotic disease Troponin: Troponin T < 0.010 ng/mL (0.00-0.029) 03/06/22 15:27 Troponin: < normal limit - Critical Actions Critical Actions: 4-6 pts:12-16.6% risk of adverse cardiac event. Should be admitted Results - Labs CBC & Chem 7: 03/06/22 08:48 03/06/22 08:48 Labs: Laboratory Last Values WBC 6.2 K/mm3 (4.5-11.0) 03/06/22 08:48 RBC 5.36 M/mm3 (3.65-5.03) H 03/06/22 08:48 Hgb 14.7 gm/dl (11.8-15.2) 03/06/22 08:48 Hct 47.1 % (35.5-45.6) H 03/06/22 08:48 MCV 88 fl (84-94) 03/06/22 08:48 MCH 27 pg (28-32) L 03/06/22 08:48 MCHC 31 % (32-34) L 03/06/22 08:48 RDW 15.4 % (13.2-15.2) H 03/06/22 08:48 Plt Count 253 K/mm3 (140-440) 03/06/22 08:48 Lymph % (Auto) 28.7 % (13.4-35.0) 03/06/22 08:48 [place] % (Auto) 8.6 % (0.0-7.3) H 03/06/22 08:48 Eos % (Auto) 1.4 % (0.0-4.3) 03/06/22 08:48 Baso % (Auto) 0.3 % (0.0-1.8) 03/06/22 08:48 Lymph # (Auto) 1.8 K/mm3 (1.2-5.4) 03/06/22 08:48 [place] # (Auto) 0.5 K/mm3 (0.0-0.8) 03/06/22 08:48 Eos # (Auto) 0.1 K/mm3 (0.0-0.4) 03/06/22 08:48 Baso # (Auto) 0.0 K/mm3 (0.0-0.1) 03/06/22 08:48 Seg Neutrophils % 61.0 % (40.0-70.0) 03/06/22 08:48 Seg Neutrophils # 3.8 K/mm3 (1.8-7.7) 03/06/22 08:48 PT 13.8 Sec. (12.2-14.9) 03/06/22 00:24 INR 0.96 (0.87-1.13) 03/06/22 00:24 APTT 31.1 Sec. (24.2-36.6) 03/05/22 17:23 Sodium 140 mmol/L (137-145) 03/06/22 08:48 Potassium 4.5 mmol/L (3.6-5.0) 03/06/22 08:48 Chloride 106.1 mmol/L (98-107) 03/06/22 08:48 Carbon Dioxide 23 mmol/L (22-30) 03/06/22 08:48 Anion Gap 15 mmol/L 03/06/22 08:48 BUN 10 mg/dL (9-20) 03/06/22 08:48 Creatinine 1.2 mg/dL (0.8-1.3) 03/06/22 08:48 Estimated GFR > 60 ml/min 03/06/22 08:48 BUN/Creatinine Ratio 8 % 03/06/22 08:48 Glucose 127 mg/dL (75-100) H 03/06/22 08:48 POC Glucose 98 mg/dL (70-105) 03/07/22 08:39 Hemoglobin A1c 8.3 % (4-6) H 03/06/22 15:27 Calcium 9.1 mg/dL (8.4-10.2) 03/06/22 08:48 Total Bilirubin 1.00 mg/dL (0.1-1.2) 03/05/22 17:23 AST 12 units/L (5-40) 03/05/22 17:23 ALT 13 units/L (7-56) 03/05/22 17:23 Alkaline Phosphatase 119 units/L (35-129) 03/05/22 17:23 Troponin T < 0.010 ng/mL (0.00-0.029) 03/06/22 15:27 Total Protein 7.9 g/dL (6.3-8.2) 03/05/22 17:23 Albumin 4.3 g/dL (3.9-5) 03/05/22 17:23 Albumin/Globulin Ratio 1.2 % 03/05/22 17:23 Triglycerides 143 mg/dL (2-149) 03/06/22 15:27 Cholesterol 161 mg/dL (50-199) 03/06/22 15:27 LDL Cholesterol Direct 97 mg/dL (50-130) 03/06/22 15:27 HDL Cholesterol 41 mg/dL (40-59) 03/06/22 15:27 Cholesterol/HDL Ratio 3.92 % 03/06/22 15:27 Lipase 21 units/L (13-60) 03/06/22 00:24 Killian/IV: Voiding Method Urinal Active Medications - Current Medications Current Medications: Generic Name Dose Route Start Last Admin Trade Name Freq PRN Reason Stop Dose Admin Acetaminophen 650 mg 03/06/22 06:06 Acetaminophen 325 Mg Tab PO Q6H PRN Pain, Mild (1-3) Albuterol 2.5 mg 03/06/22 06:39 Albuterol 2.5 Mg/3 Ml Nebu IH Q6HRT PRN Wheezing/ SOB Amlodipine Besylate 10 mg 03/06/22 10:00 03/07/22 09:57 Amlodipine 10 Mg Tab PO 10 mg DAILY STACY Administration Arformoterol Tartrate 15 mcg 03/06/22 21:37 03/07/22 08:40 Arformoterol 15 Mcg/2 Ml Nebu IH 15 mcg Q12HRT STACY Administration Aspirin 81 mg 03/06/22 10:00 03/07/22 09:55 Aspirin 81 Mg Tab Chew PO 81 mg QDAY STACY Administration Atenolol 50 mg 03/06/22 10:00 03/07/22 09:56 Atenolol 50 Mg Tab PO 50 mg DAILY STACY Administration Atorvastatin Calcium 40 mg 03/06/22 22:00 03/06/22 22:07 Atorvastatin 40 Mg Tab PO 40 mg QHS STACY Administration Budesonide 0.5 mg 03/06/22 21:38 03/07/22 08:40 Budesonide 0.5 Mg/2 Ml Nebu IH 0.5 mg Q12HRT STACY Administration Clopidogrel Bisulfate 75 mg 03/06/22 10:00 03/07/22 09:55 Clopidogrel 75 Mg Tab PO 75 mg DAILY STACY Administration Dextrose 50 ml 03/06/22 06:06 Dextrose 50% In Water (25gm) 50 Ml Syringe IV Q30MIN PRN Hypoglycemia Protocol Famotidine 40 mg 03/06/22 10:00 03/07/22 09:55 Famotidine 20 Mg Tab PO 40 mg QDAY STACY Administration Heparin Sodium (Porcine) 5,000 unit 03/06/22 10:00 03/07/22 09:55 Heparin 5,000 Unit/1 Ml Vial SUB-Q 5,000 unit Q12HR STACY Administration Insulin Human Isoph/Insulin Regular 25 unit 03/06/22 17:00 03/07/22 08:53 Insulin Nph/Regular 70/30 Inj SUB-Q Not Given BIDDIAB [facility] Insulin Human Lispro 0 unit 03/06/22 16:30 03/07/22 08:52 Insulin Lispro 100 Unit/Ml SUB-Q Not Given ACHS [facility] Protocol Ipratropium [place] 0.5 mg 03/06/22 06:47 Ipratropium 0.02% Nebu 2.5 Ml IH Q6HRT PRN Shortness Of Breath Losartan Potassium 25 mg 03/06/22 12:00 03/07/22 09:56 Losartan 25 Mg Tab PO 25 mg QDAY STACY Administration Montelukast Sodium 10 mg 03/06/22 18:00 03/06/22 17:36 Montelukast 10 Mg Tab PO 10 mg QPM STACY Administration Morphine Sulfate 2 mg 03/06/22 06:06 03/07/22 11:16 Morphine 4 Mg/1 Ml Inj IV 2 mg Q5MIN PRN Administration Chest Pain unrelieved by NTG Nitroglycerin 0.4 mg 03/06/22 06:06 Nitroglycerin 0.4 Mg Tab Subl SL Q5M PRN Chest Pain Nitroglycerin 1 inch 03/06/22 12:00 03/07/22 11:15 Nitroglycerin 2% Oint 1 Gm TP Not Given QIDNTG [facility] Protocol Sodium Chloride 10 ml 03/06/22 06:06 03/07/22 09:56 Sodium Chloride 0.9% 10 Ml Flush Syringe IV 10 ml PRN PRN Administration LINE FLUSH Tiotropium [place] 1 puff 03/07/22 09:00 03/07/22 08:40 Tiotropium 18 Mcg Cap Inhalation IH Not Given Q24HRT STACY Tramadol HCl 50 mg 03/06/22 06:06 Tramadol 50 Mg Tab PO Q6H PRN Pain, Moderate (4-6) Nutrition/Malnutrition Assess - Dietary Evaluation Nutrition/Malnutrition Findings: Nutrition Notes Start: 03/06/22 11:18 Freq: Status: Active Protocol: Document 03/06/22 11:18 [facility] (Rec: 03/06/22 11:21 [facility] [id number]) Nutrition Notes Need for Assessment generated from: MD Order,Education Initial or Follow up Brief Note Current Diagnosis COPD,Coronary Artery Disease, Diabetes,Hyperlipidemia Other Pertinent Diagnosis Chest pain Current Diet NPO Weight Status Overweight Subjective/Other Information RD consulted for diet education. Pt NPO for procedure. BG labs reasonable ; BP slightly elevated. Burn Absent Trauma Absent Minimum of two criteria No Nutrition Intervention Follow-Up By: 03/11/22 Additional Comments F/U: diet advancement, diet education needs
--- NOTE | 2022-03-07 12:09 | Progress Note ---
Assessment and Plan - Patient Problems (1) Chest pain Current Visit: Yes Status: Acute (2) COPD exacerbation Current Visit: No Status: Acute Subjective Date of service: 03/07/22 Interval history: NO CHANGE IN STATUS Objective Vital Signs Temp Pulse Pulse Pulse Resp Resp Resp 03/07/22 08:40 63 62 18 18 03/07/22 08:38 57 L 18 03/07/22 07:00 64 03/07/22 04:25 97.6 F 72 16 03/07/22 00:10 97.6 F 69 16 03/06/22 23:55 15 03/06/22 21:51 59 L 53 L 16 18 03/06/22 20:11 98.4 F 54 L 16 03/06/22 19:30 18 03/06/22 16:51 03/06/22 16:50 97.8 F 03/06/22 15:43 18 03/06/22 15:36 68 03/06/22 14:12 18 03/06/22 14:04 66 18 BP BP Pulse Ox 03/07/22 08:40 03/07/22 08:38 123/64 91 03/07/22 07:00 03/07/22 04:25 124/69 89 03/07/22 00:10 112/52 94 03/06/22 23:55 03/06/22 21:51 03/06/22 20:11 109/61 92 03/06/22 19:30 03/06/22 16:51 113/60 03/06/22 16:50 03/06/22 15:43 98 03/06/22 15:36 03/06/22 14:12 03/06/22 14:04 110/63 94 - Physical Examination General: No Apparent Distress, Other (OBESE) HEENT: Positive: PERRL Neck: Positive: neck supple Cardiac: Positive: Reg Rate and Rhythm Lungs: Positive: clear to auscultation, Decreased Breath Sounds Neuro: Positive: Grossly Intact Abdomen: Positive: Unremarkable Extremities: Present: normal - Labs and Meds Lipids 03/06/22 Range/Units 15:27 Triglycerides 143 (2-149) mg/dL Cholesterol 161 (50-199) mg/dL HDL Cholesterol 41 (40-59) mg/dL Cholesterol/HDL Ratio 3.92 %
[2022-03-07] MEDS: oxyCODONE /ACETAMINOPHEN 5-325MG TAB PO PRN ×2 (15:07→23:06)
[2022-03-07] MEDS: MONTELUKAST 10 MG TAB PO SCH (18:07)
--- NOTE | 2022-03-07 18:11 | Electrocardiograph Report ---
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
--- NOTE | 2022-03-07 18:17 | Electrocardiograph Report ---
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
[2022-03-08] MEDS: NITROGLYCERIN 2% OINT 1 GM TP SCH ×3 (05:03→13:38)
[2022-03-08 05:16] LABS: Hematocrit 41.3 % (35.5-45.6); Hemoglobin 13.2 gm/dl (11.8-15.2)
[2022-03-08 05:29] LABS: BUN/Creatinine Ratio 9; Blood Urea Nitrogen 11 mg/dL (9-20); Calcium 8.7 mg/dL (8.4-10.2); Hemolysis Index 14
[2022-03-08 05:37] LABS: INR 0.89 (0.87-1.13)
--- NOTE | 2022-03-08 07:47 | Consultation ---
DATE OF CONSULTATION: 03/06/2022 HISTORY OF PRESENT ILLNESS: The patient is a 66-year-old male with multiple medical problems including a history of coronary artery disease. He states he has eight stents and the last one was about 10 years ago. He does not follow a diet or exercise. He normally goes to the [place], but he has had stents placed here in the past. He developed crushing lower substernal chest pain yesterday that did not improve with sublingual nitroglycerin. It has improved since then, but it persists. There is no shortness of breath, diaphoresis, nausea, palpitations, dizziness, claudication or edema. Normally, he is not active and does not follow a strict diet. He states this pain was similar to his previous heart pain. There is no history of heart failure or arrhythmias. He does not describe any sleep disorders. He makes it sound as if his blood sugar and his cholesterol have been okay and his blood pressure has been okay. PAST HISTORY: Smoking, prior smoker. Alcohol, no heavy use. FAMILY HISTORY: Hypertension. OPERATIONS: Ureter procedure. ALLERGIES: LAZARA, LISINOPRIL, PENICILLINS. MEDICATIONS: See the nurse's list. REVIEW OF SYSTEMS: He did not describe any significant skin problems, arthritis, gastrointestinal disorders, infectious symptoms or strokes. There is a history of kidney stones. PHYSICAL EXAMINATION: GENERAL: Well-developed, moderately obese, no acute distress. The patient is alert, oriented, cooperative. HEENT: Eyes, nose and throat unremarkable. He does have multiple missing teeth. Neck reveals no JVD or bruits. NECK: Supple. No masses. LUNGS: Clear but diminished breath sounds. No labored respirations. CARDIAC: Regular rhythm. Heart sounds distant. No rubs, murmurs or gallops can be appreciated. ABDOMEN: Soft, nontender. No masses. Bowel sounds intact. EXTREMITIES: No cyanosis, clubbing, edema. Peripheral pulses are intact. NEUROLOGIC: Grossly symmetrical. SKIN: Clear. IMPRESSION: 1. History of coronary artery disease. He has an extensive history of coronary artery disease and though this current chest pain episode has some atypical qualities, he states this is similar to his previous heart pain, so this prolonged chest discomfort at rest would suggest unstable angina. A stress test could be risky. I would recommend coronary angiography. Treat for unstable angina. 2. Diabetes. 3. Obesity with evidence of a fatty liver. 4. Hyperlipidemia, on therapy. 5. Hypertension, on therapy. 6. History of COPD and asthma, stable. 7. Mild right hydronephrosis on x-ray: No obvious symptoms at this time. PLAN: Encouraged CAD risk factor modification. Treat for unstable angina. Coronary angiography. Thank you for this consultation. TID: [id number] RECEIPT: [id number] JDS/ARACELY
[2022-03-08] MEDS: INSULIN LISPRO 100 UNIT/ML SUB-Q SCH ×2 (08:12→12:09)
[2022-03-08] MEDS: INSULIN NPH/REGULAR 70/30 INJ SUB-Q SCH (08:13)
--- NOTE | 2022-03-08 08:57 | Electrocardiograph Report ---
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
[2022-03-08] MEDS: ASPIRIN 81 MG TAB CHEW PO SCH (09:00)
[2022-03-08] MEDS: CLOPIDOGREL 75 MG TAB PO SCH (09:00)
[2022-03-08] MEDS: TIOTROPIUM 18 MCG CAP INHALATION IH SCH (09:17)
[2022-03-08] MEDS: BUDESONIDE 0.5 MG/2 ML NEBU IH SCH (09:17)
[2022-03-08] MEDS: ARFORMOTEROL 15 MCG/2 ML NEBU IH SCH (09:17)
[2022-03-08] MEDS ORDERED: NITROGLYCERIN SYRINGE 0 ML ONE (09:42)
[2022-03-08] MEDS ORDERED: VERAPAMIL 5 MG/2 ML INJ ONE (09:42)
[2022-03-08] MEDS ORDERED: HEPARIN 10,000 UNITS/10 ML VIAL ONE (09:42)
[2022-03-08] MEDS ORDERED: NITROGLYCERIN SYRINGE 3 ML ONE ×2 (09:43→09:44)
[2022-03-08] MEDS: fentaNYL 100 MCG/2 ML INJ ONE ×2 (10:25→10:35)
[2022-03-08] MEDS: SODIUM CHLORIDE 0.9% 500 ML 500 ML IV SCH ×2 (10:25→11:03)
[2022-03-08] MEDS: MIDAZOLAM 2 MG/2 ML INJ ONE ×2 (10:26→10:35)
[2022-03-08] MEDS: LIDOCAINE (1%) 10 MG/1 ML VIAL 20 ML MDV ONE ×2 (10:28→10:34)
[2022-03-08] MEDS: HEPARIN/NS 5000 UNIT/500ML 1,000 ML IR ONE ×2 (10:30→11:03)
--- NOTE | 2022-03-08 11:39 | Progress Note ---
Assessment and Plan - Patient Problems (1) Chest pain Current Visit: Yes Status: Acute (2) COPD exacerbation Current Visit: No Status: Acute Subjective Date of service: 03/08/22 Interval history: NO CHANGE IN STATUS Objective Vital Signs Temp Pulse Pulse Pulse Pulse Resp Resp 03/08/22 10:47 71 03/08/22 08:00 71 20 03/08/22 04:59 98.0 F 63 14 03/08/22 04:57 59 L 03/08/22 00:53 97.6 F 62 14 03/07/22 23:06 20 03/07/22 20:39 03/07/22 20:34 68 03/07/22 20:26 98.2 F 64 14 03/07/22 20:25 66 66 16 03/07/22 17:16 97.8 F 68 18 03/07/22 15:00 64 03/07/22 12:53 18 Resp BP BP Pulse Ox 03/08/22 10:47 03/08/22 08:00 98 03/08/22 04:59 107/49 93 03/08/22 04:57 92 03/08/22 00:53 107/49 92 03/07/22 23:06 03/07/22 20:39 97 03/07/22 20:34 03/07/22 20:26 119/61 97 03/07/22 20:25 16 03/07/22 17:16 109/54 91 03/07/22 15:00 03/07/22 12:53 99 - Physical Examination General: No Apparent Distress, Other (OBESE) HEENT: Positive: PERRL Neck: Positive: neck supple Cardiac: Positive: Reg Rate and Rhythm Lungs: Positive: clear to auscultation Neuro: Positive: Grossly Intact Abdomen: Positive: Unremarkable Extremities: Present: normal - Labs and Meds Coagulation 03/08/22 Range/Units 04:44 PT 13.0 (12.2-14.9) Sec. INR 0.89 (0.87-1.13) CBC 03/08/22 Range/Units 04:44 Hgb 13.2 (11.8-15.2) gm/dl Hct 41.3 (35.5-45.6) % Comprehensive Metabolic Panel 03/08/22 Range/Units 04:44 Sodium 137 (137-145) mmol/L Potassium 3.9 (3.6-5.0) mmol/L Chloride 102.2 (98-107) mmol/L Carbon Dioxide 24 (22-30) mmol/L BUN 11 (9-20) mg/dL Creatinine 1.2 (0.8-1.3) mg/dL Glucose 140 H (75-100) mg/dL Calcium 8.7 (8.4-10.2) mg/dL
--- NOTE | 2022-03-08 11:50 | Cardiac Catherization Report ---
DATE OF SERVICE: 03/08/2022 HISTORY: The patient is a 66-year-old male with extensive coronary history, who presented to the hospital with prolonged chest pain at rest, suggestive of unstable angina. PROCEDURE: Left heart catheterization, ventriculography, and coronary angiography via the right femoral artery using 5 [place] Hipolito catheters and a pigtail catheter. COMPLICATIONS: None. SEDATION: Intravenous Versed and fentanyl. BLOOD LOSS: 5-10 mL TISSUE SAMPLE: None. PREPROCEDURE DIAGNOSIS: Unstable angina. POSTPROCEDURE DIAGNOSIS: Unstable angina. HEMODYNAMICS: Central aortic pressure 135/64. Left ventricular pressure 137/27. SEDATION START TIME: 10:26 a.m. PROCEDURE START TIME: 10:34 a.m. PROCEDURE END TIME: 10:52 a.m. SEDATION TIME TOTAL: 26 minutes. PROCEDURE TIME: 18 minutes. ANGIOGRAPHIC RESULTS: 1. Left ventricle: The ventriculogram reveals a normal-sized left ventricle with normal systolic function. There is evidence of left ventricular hypertrophy. EF is approximately 65%. 2. Right coronary artery: This is a codominant vessel that is diffusely irregular and diffusely and mildly calcified. There is a patent stent in this vessel. There are no severe lesions. 3. Left coronary artery: This vessel is diffusely irregular and diffusely calcified to a mild degree. The left main is free of remarkable disease. There is a ramus intermedius branch, which is free of severe lesions. The LAD system is diffusely irregular and there is a mid, relatively long, 40% stenosis. The circumflex contains an ostial 30% lesion and a proximal 30% lesion. Distally, the posterolateral branch is a relatively small vessel with a 70% stenosis. Note, the aortic root can be seen on the ventriculogram and appears to have a normal diameter. IMPRESSION: Unstable angina with evidence of a 70% stenosis in the distal circumflex. The patient will be treated medically. Left ventricular function is normal. There is evidence of left ventricular hypertrophy. PLAN: Aggressive medical therapy. CAD risk factor modification. Office followup within 7 days. Discussed CAD risk factor modification. TID: [id number] RECEIPT: [id number] CHIKA/TOI
[2022-03-08] MEDS ORDERED: HYDROcodone/ACETAMINOPHEN 5-325 MG TAB PO PRN (11:56)
[2022-03-08 12:02] VITALS: BP 123/68
[2022-03-08] MEDS: FAMOTIDINE 20 MG TAB PO SCH (12:18)
[2022-03-08] MEDS: HEPARIN 5,000 UNIT/1 ML VIAL SUB-Q SCH (12:19)
[2022-03-08] MEDS: atenoloL 50 MG TAB PO SCH (12:20)
[2022-03-08] MEDS: LOSARTAN 25 MG TAB PO SCH (12:22)
[2022-03-08] MEDS: amLODIPine 10 MG TAB PO SCH (12:28)
--- NOTE | 2022-03-08 13:05 | Discharge Summary ---
Providers - Providers Date of Admission: 03/06/22 06:06 Date of discharge: 03/08/22 Attending physician: MARISA VILLASEÑOR MD 03/06/22 Consult to Cardiac Rehabilitation [CONS] Routine Reason For Exam: Phase I 03/06/22 06:06 Consult to Cardiology [CONS] Routine Consulting Provider: EDSI BORJA Reason For Exam: acs Consult to Dietitian/Nutrition [CONS] Routine Physician Instructions: Reason For Exam: Reason for Consult: Diet education 03/08/22 11:56 Consult to Cardiac Rehabilitation [CONS] Routine Reason For Exam: Cardiac Rehab Evaluation Primary care physician: KEILA DICKENS Hospitalization Reason for admission: Unstable angina Condition: Stable Pertinent studies: Reviewed. Procedures: Left heart catheterization Hospital course: Patient is a 66-year-old male past medical history of CAD complicated by PCI x8, DVT, COPD, insulin-dependent type 2 diabetes mellitus, hyperlipidemia, mild intermittent asthma who presented to the ED with complaints of episodic gastric/midsternal chest pain that was crushing in nature and similar to his prior MIs. In the emergency room, the patient was found to be hemodynamically stable. He had unremarkable troponins, and EKG revealed nonspecific ST changes. Cardiology was consulted for further management. Due to concerns for unstable angina versus GERD, the patient was started on PPI. Patient underwent left heart catheterization on 03/08/2022 revealing a normal EF with 70% blockage of his distal circumflex that will be managed with medical management. Cardiology recommends and following up in their outpatient clinic on 03/11/2022. The patient is medically clear for discharge. Disposition: 01 HOME / SELF CARE / HOMELESS Final Discharge Diagnosis (Prints w/discharge instructions): Unstable angina, insulin-dependent type 2 diabetes mellitus, hyperlipidemia, hypertension, asthma, CAD status post PCI x8 Time spent for discharge: 45 min Core Measure Documentation - Palliative Care Palliative Care/ Comfort Measures: Not Applicable - Core Measures Any of the following diagnoses?: none Exam - Constitutional Vitals: Temp Pulse Resp BP Pulse Ox 98.0 F 65 14 123/68 98 03/08/22 04:59 03/08/22 12:28 03/08/22 11:30 03/08/22 12:28 03/08/22 11:30 General appearance: Present: no acute distress, well-nourished - EENT Eyes: Present: PERRL, EOM intact ENT: hearing intact, clear oral mucosa, dentition normal - Neck Neck: Present: supple, normal ROM - Respiratory Respiratory effort: normal Respiratory: bilateral: CTA - Cardiovascular Rhythm: regular Heart Sounds: Present: S1 & S2 - Extremities Extremities: no ischemia, pulses intact, pulses symmetrical, No edema, normal temperature, normal color, Full ROM Peripheral Pulses: within normal limits - Abdominal General gastrointestinal: Present: soft, non-tender, non-distended, normal bowel sounds Male genitourinary: Present: deferred - Rectal Rectal Exam: deferred - Integumentary Integumentary: Present: clear, warm, dry - Musculoskeletal Musculoskeletal: strength equal bilaterally - Psychiatric Psychiatric: appropriate mood/affect, intact judgment & insight, memory intact, cooperative - Neurologic Neurologic: CNII-XII intact, moves all extremities - Allied Health Allied health notes reviewed: nursing Plan Activity: advance as tolerated Diet: low salt, diabetic Additional Instructions: Patient is a 66-year-old male past medical history of CAD complicated by PCI x8, DVT, COPD, insulin-dependent type 2 diabetes mellitus, hyperlipidemia, mild intermittent asthma who presented to the ED with complaints of episodic gastric/midsternal chest pain that was crushing in nature and similar to his prior MIs. In the emergency room, the patient was found to be hemodynamically stable. He had unremarkable troponins, and EKG revealed nonspecific ST changes. Cardiology was consulted for further management. Due to concerns for unstable angina versus GERD, the patient was started on PPI. Patient underwent left heart catheterization on 03/08/2022 revealing a normal EF with 70% blockage of his distal circumflex that will be managed with medical management. Cardiology recommends and following up in their outpatient clinic on 03/11/2022. The patient is medically clear for discharge. Care Plan Goals: Patient is medically cleared for discharge. Assessment: Patient is a 66-year-old male past medical history of CAD complicated by PCI x8, DVT, COPD, insulin-dependent type 2 diabetes mellitus, hyperlipidemia, mild intermittent asthma who presented to the ED with complaints of episodic gastric/midsternal chest pain that was crushing in nature and similar to his prior MIs. In the emergency room, the patient was found to be hemodynamically stable. He had unremarkable troponins, and EKG revealed nonspecific ST changes. Cardiology was consulted for further management. Due to concerns for unstable angina versus GERD, the patient was started on PPI. Patient underwent left heart catheterization on 03/08/2022 revealing a normal EF with 70% blockage of his distal circumflex that will be managed with medical management. Cardiology recommends and following up in their outpatient clinic on 03/11/2022. The patient is medically clear for discharge. Follow up with: KEILA DICKENS MD [Primary Care Provider] - 3-5 Days SHABBIR IVERSON MD [Staff Physician] - 03/11/22 Prescriptions: AtorvaSTATin [Lipitor] 40 mg PO QHS #30 tablet amLODIPine 10 mg PO DAILY #30 tab Aspirin [Aspirin BABY CHEW TAB] 81 mg PO QDAY #30 tab.chew Losartan [Cozaar] 25 mg PO QDAY #30 tablet NovoLOG Mix 70/30 VIAL 30 unit SUB-Q QAM 30 Days #1 vial Famotidine [Pepcid] 40 mg PO QDAY #30 tablet Clopidogrel [Plavix] 75 mg PO DAILY #30 tablet Montelukast [Singulair] 10 mg PO QPM #30 tablet atenoloL [Tenormin] 50 mg PO DAILY #30 tablet
== END 2022-03-08 16:30 | disposition home or self-care (01) | DRG 287 ==
LOC: ED 17:04 → 4A 03-06 06:06
PROVIDERS: ADMIT Hospitalist; ATTEND Student in an Organized Health Care Education/Training Program
PROC: 4A023N7 Measurement of Cardiac Sampling and Pressure, Left Heart, Percutaneous Approach (ICD-10-PCS; principal; 2022-03-08)
PROC: B2111ZZ Fluoroscopy of Multiple Coronary Arteries using Low Osmolar Contrast (ICD-10-PCS; 2022-03-08)
PROC: B2151ZZ Fluoroscopy of Left Heart using Low Osmolar Contrast (ICD-10-PCS; 2022-03-08)
DX: I25.110 Atherosclerotic heart disease of native coronary artery with unstable angina pectoris (principal); J44.1 Chronic obstructive pulmonary disease with (acute) exacerbation; K21.9 Gastro-esophageal reflux disease without esophagitis; J44.9 Chronic obstructive pulmonary disease, unspecified; E78.5 Hyperlipidemia, unspecified; E11.9 Type 2 diabetes mellitus without complications; Z95.5 Presence of coronary angioplasty implant and graft; E78.00 Pure hypercholesterolemia, unspecified; Z82.49 Family history of ischemic heart disease and other diseases of the circulatory system; Z88.0 Allergy status to penicillin; Z88.8 Allergy status to other drugs, medicaments and biological substances
CPT/HCPCS: 36415; 71046; 74177; 76705; 80048; 80053; 80061; 82962; 83036; 83690; 84484; 85014; 85018; 85025; 85610; 85730; 93005; 93306; 93458; 94640; G0378; J1815; Q0177; Q9967; C1894; C8929; J1644; J2250; J2270; J2405; J3010; J7040